=== PATIENT | female | born 1945 | race Caucasian/White ===

== ENCOUNTER → 2017-01-29 | Day surgery (SDC) | payer MEDICARE ==
[~2017-01-29] VITALS: Ht 162.6 cm; Wt 54.0 kg
[~2017-01-29] MED LIST: 0.9% Sodium Chloride 1,000 ML IV SCH; ACET325T51 PO; ALBU2.5V4 INHALATION; AMLO5TAB2 PO; HEPA500039 SUBQ; LABE200T PO; MELA1TAB28 PO; SENN-133 PO; Sodium Chloride LOK Flush 10 mL Syringe IV PRN; TUBE5VIA2 INTRADERM; fentaNYL-PF 50 mCg/mL 2 mL Inj IVPUSH PRN
[2017-01-29 08:43] VITALS: BP 162/76; PULSE 54; RESP 17; O2SAT 100
[2017-01-29 09:27] VITALS: BP 143/63; PULSE 67; RESP 12; O2SAT 93
[2017-01-29 09:39] VITALS: BP 129/62; PULSE 57; RESP 12; O2SAT 93
[2017-01-29 09:49] VITALS: BP 127/69; PULSE 65; RESP 16; O2SAT 93
[2017-01-29 09:59] VITALS: BP 127/69; PULSE 58; RESP 16; O2SAT 93
[2017-01-29 10:09] VITALS: BP 150/68; PULSE 68; RESP 16; O2SAT 96
--- NOTE | 2017-01-29 18:14 | ENDO ---
[address] [address] ENDOSCOPY PROCEDURE PATIENT: AVANI ROWLEY : 1945 MR#: [id number] ADMIT: 01/29/2017 JOB ID: [id number] DATE OF SERVICE: 01/29/2017 PROCEDURE: Esophagogastroduodenoscopy with biopsy. PREOPERATIVE DIAGNOSIS(ES): History of abdominal mass. POSTOPERATIVE DIAGNOSIS(ES): Prominent fold within the antrum, status post biopsy. No mass was identified. ANESTHESIA: Fentanyl 75 mcg and Versed 4 mg IV administered. COMPLICATIONS: None. BLOOD LOSS: Minimal. DESCRIPTION OF PROCEDURE: After risks and benefits explained to the patient, informed consent was obtained. After anesthesia administered, upper endoscope was inserted into the mouth, esophagus, stomach, second portion of duodenum. Mucosa carefully examined. After the procedure was done, the scope withdrawn and procedure terminated. FINDINGS: Upon inspection of esophagus, the esophagus appeared normal without masses, ulcers, or lesions. Z-line located 35 cm from incisors. Upon entering stomach, there is a prominent fold seen in the antrum which was biopsied. No masses or ulcers were seen. Retroflexion was normal. The PEG bumper was also seen intraluminally. The duodenal bulb, first and second portion were normal. IMPRESSION: 1. Percutaneous endoscopic gastrostomy bumper seen in the antrum. 2. Prominent fold in the antrum, status post biopsy. RECOMMENDATION: Await pathology results. Follow up in GI clinic as needed.
--- NOTE | 2017-02-03 12:12 | PATH ---
SURGICAL PATHOLOGY Attending Physician:Anoop Gray MD CASE STATUS: Signed Out PATIENT NAME: AVANI ROWLEY PID: [id number] : 1945 DATE COLLECTED:01/29/2017 21:06 SPECIMEN: Stomach, Antrum, Biopsy CLINICAL HISTORY: 1). 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 - MILD FOVEOLAR HYPERPLASIA. - Negative for Helicobacter pylori by immunohistochemistry. - Negative for intestinal metaplasia. - Negative for dysplasia and malignancy - Additional deeper levels examined. [id number] GROSS DESCRIPTION: The specimen is received in one formalin filled container labeled with the patient's name, sublabeled "prominent fold antrum" and consists of a 0.3 x 0.3 x 0.3 CM portion of tissue which is entirely submitted in one cassette. 01/29/2017DC MICRO DESCRIPTION: An immunohistochemical stain was performed to evaluate for Helicobacter pylori microorganisms. The control stains show appropriate reactivity. This test was developed and its performance characteristics determined by [employer]. It has not been cleared or approved by the [place]. [place]. Food and Drug Administration. The FDA has determined that such clearance or approval is not necessary. This test is used for clinical purposes. It should not be regarded as investigational or for research. ICD-9 CODES: CPT CODES: 1: 25982, 69456 Electronically Signed Out Gibson Malcolm MD [facility] Pathology [facility] [address], [place] [address] Technical component performed at [facility], [facility] [address], [address]
== END | disposition home or self-care (01) ==
LOC: END 00:24
PROVIDERS: ATTEND Internal Medicine Gastroenterology
DX: K29.50 Unspecified chronic gastritis without bleeding (principal); R19.00 Intra-abdominal and pelvic swelling, mass and lump, unspecified site; I48.0 Paroxysmal atrial fibrillation; I10 Essential (primary) hypertension
CPT/HCPCS: 43239; 88305; 88342; G0500; J2250; J3010; J7030